=== PATIENT | female | born 1985 | race African-American/Black ===

== ENCOUNTER 2022-03-28 11:16 | Outpatient (REF) | payer MEDICAID, SELFPAY ==
[2022-03-28 14:44] LABS: Anion Gap 9.3 mmol/L (3-11); BUN 12 mg/dL (7-18); CO2 25.7 mmol/L (21.0-32.0); CREATININE 0.7 mg/dL (0.55-1.02); Calcium 9.3 mg/dL (8.5-10.1); Calculated LDL 67 mg/dL (<100); Chloride 105 mmol/L (98-107); Cholesterol 140 mg/dL (<200); Estimated GFR 113.46 (mL/min/1.73m2); Glucose 99 mg/dL (74-106); HDL Cholesterol 58 mg/dL (40-60); Potassium 3.9 mmol/L (3.5-5.1); Sodium 140 mmol/L (136-145); Triglyceride 76 mg/dL (<150)
== END 2022-03-28 11:17 | disposition home or self-care (01) ==
LOC: NCHCN 11:16
PROVIDERS: Visit Provider Registered Nurse
DX: Z13.220 Encounter for screening for lipoid disorders (principal); Z13.228 Encounter for screening for other metabolic disorders; Z00.00 Encounter for general adult medical examination without abnormal findings
CPT/HCPCS: 80048; 80061

== ENCOUNTER 2022-05-09 09:24 | Outpatient (REF) | payer MEDICAID, SELFPAY ==
--- NOTE | 2022-05-09 08:40 | PAPFT_PTH ---
PATIENT: Kelly Munoz LOC: [facility]#:[id number] AGE/SX: 37/F ROOM: RE05/09/[address]: Bella Brewer : 1985 BED: DIS: 05/09/2022 SPEC #: [id number] RECD: 05/09/22 18:33 STATUS: SINCERE REQ #: [id number] LUCIA: 05/09/22 08:[address]: Bella Brewer DEPT: [facility] Cytology RECD BY: Yulia Frias Tissues: 1 - CX/ENDOCX FOR PAP SMEARS Procedures: PAP THIN PREP/[facility] Screening Comments: [id number] (CHLAMYDIA/GC) (UNSATISFACTORY FOR EVALUATION)
--- OUTSIDE RECORDS SUMMARY | 2022-05-09 09:29 | XMS_ITS | CCD ---
Author Name Unknown Address [address] [place] [address] [id number] Organization Unknown Address [address] [place] [address] [phone] Care Team Providers Care Map Compiler Name Role Phone LASHAY CABRAL Attending Physician [phone] Vital Signs Unknown or Not Available. Allergies Unknown or Not Available. Procedures Unknown or Not Available. History of Immunizations Unknown or Not Available. Problems Unknown or Not Available. Results Unknown or Not Available. Active Medications Unknown or Not Available. Medications Administered During Visit Unknown or Not Available. Encounters Encounter Diagnosis Diagnosis Code Start Date Other low back pain [id number] 01/21/2022 Social History Unknown or Not Available. Patient Decision Aids Unknown or Not Available. Discharge Instructions You were admitted to [facility] on 01/21/2022 11:03 with a principal diagnosis of Other low back pain You were discharged from [facility] Should you have any questions prior to discharge, please contact a member of your healthcare team. If you have left the hospital and have any questions, please contact your primary care physician. Chief Complaint and Reason For Visit Unknown or Not Available. Function Status Unknown or Not Available. Plan of Care Unknown or Not Available. Referral/Transition of Care Unknown or Not Available.
[2022-05-10 12:34] LABS: Chlamydia Result Negative (Negative); GC Result Negative (Negative)
== END 2022-05-09 09:25 | disposition home or self-care (01) ==
LOC: NCHCN 09:24
PROVIDERS: Visit Provider Registered Nurse
DX: Z11.3 Encounter for screening for infections with a predominantly sexual mode of transmission (principal); Z12.4 Encounter for screening for malignant neoplasm of cervix; R87.615 Unsatisfactory cytologic smear of cervix
CPT/HCPCS: 87491; 87591; 88142

== ENCOUNTER 2022-08-08 11:33 | Outpatient (REF) | payer MEDICAID, SELFPAY ==
--- NOTE | 2022-08-08 10:45 | PAPFT_PTH ---
PATIENT: Kelly Munoz LOC: [facility]#:[id number] AGE/SX: 37/F ROOM: RE08/08/[address]: Bella Brewer : 1985 BED: DIS: 08/08/2022 SPEC #: [id number] RECD: 08/08/22 13:42 STATUS: SINCERE REQ #: [id number] LUCIA: 08/08/22 10:[address]: Bella Brewer DEPT: [facility] Cytology RECD BY: Yulia Frias Tissues: 1 - CX/ENDOCX FOR PAP SMEARS Procedures: PAP THIN PREP/[facility] Screening HPV DNA PROBE Comments: [id number]
== END 2022-08-08 11:34 | disposition home or self-care (01) ==
LOC: NCHCN 11:33
PROVIDERS: Visit Provider Registered Nurse
DX: Z00.00 Encounter for general adult medical examination without abnormal findings (principal)
CPT/HCPCS: 88142; 87624